=== PATIENT | female | born 1980 | race Caucasian/White ===

== ENCOUNTER → 2023-11-19 | Outpatient (CLI) | payer BC ==
[~2023-11-19] MED LIST: GADOTERATE MEGLUMINE 5 MMOL/10 ML VIAL IV ONE; IOHEXOL 180 MG/ML 20 ML VIAL ONE
== END | disposition home or self-care (01) ==
LOC: RAH 07:58
PROVIDERS: ATTEND Family Medicine
DX: M25.852 Other specified joint disorders, left hip (principal); M25.552 Pain in left hip
CPT/HCPCS: 73525; 73723; Q9965; A9575